=== PATIENT | male | born 1935 | race Caucasian/White ===

== ENCOUNTER → 2019-10-28 | Outpatient (CLI) | payer MEDICARE ==
[~2019-10-28] VITALS: Ht 177.8 cm; Wt 95.7 kg
[~2019-10-28] MED LIST: ACETAMINOPHEN 325 MG TAB As Ordered ONE; ACETAMINOPHEN TAB 650MG DOSE (2X325MG) PO PRN; AMLO5TAB6 PO; BETA115CR TOP; BISO5TAB9 PO; CILO100T PO; CLO; CLOP75TA2 PO; ELIQ5TAB PO; FLUT22IN INH; FURO20TA2 PO; HEPARIN 1,000 UNITS/ML 10ML VIAL (FOR RADIOLOGY& DIALYSIS ONLY) As Ordered ONE; ISOVUE-300 61% 50ML VIAL (Q9967) As Ordered ONE; LIDOCAINE 1% MDV 20ML VIAL As Ordered ONE; LISI40TA PO; METF500T13 PO; MIDAZOLAM INJ 2 MG/2 ML VIAL (J2250) As Ordered ONE; NITR0.4S14 SL; NS 1,000 ML IV SCH; PRAL1INJ SC; TRIA0.5O TOP; TRIA1CR80 TOP; VENTAER INH; ZETI10TA16 PO; fentaNYL 100 MCG/2 ML INJECTION (J3010) As Ordered ONE
[2019-10-28 09:03] LABS: HEMATOCRIT 48.3 % (42.0-52.0); HEMOGLOBIN 15.9 g/dl (13.5-17.5); MEAN CORPUSCULAR HEMOGLOBIN 32.2 pg (27.0-33.0); MEAN CORPUSCULAR HGB CONC 32.9 g/dl (32.0-36.5); MEAN CORPUSCULAR VOLUME 97.8 fl (80.0-96.0); PLATELET COUNT, AUTOMATED 123 10^3/uL (150-450); RED BLOOD COUNT 4.94 10^6/uL (4.30-6.10); WHITE BLOOD COUNT 4.6 10^3/uL (4.0-10.0)
[2019-10-28 09:32] LABS: ALBUMIN 3.4 GM/DL (3.2-5.2); ALT/SGPT 20 U/L (12-78); BILIRUBIN,TOTAL 0.6 MG/DL (0.2-1.0); BLOOD UREA NITROGEN 19 MG/DL (7-18); CALCIUM LEVEL 8.3 MG/DL (8.8-10.2); CARBON DIOXIDE LEVEL 22 MEQ/L (21-32); CHLORIDE LEVEL 113 MEQ/L (98-107); CREATININE FOR GFR 1.03 MG/DL (0.70-1.30); GLOMERULAR FILTRATION RATE > 60.0 (>35); GLUCOSE, FASTING 123 MG/DL (70-100); SODIUM LEVEL 144 MEQ/L (136-145); TOTAL PROTEIN 6.4 GM/DL (6.4-8.2)
--- NOTE | 2019-10-28 11:14 | ROOPDOC ---
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 POSTPROCEDURE DIAGNOSES: Same. PROCEDURE: 1. Ultrasound-guided access left common femoral artery 2. Aortoiliofemoral arteriogram 3. Runoff right lower extremity from selection common femoral artery 4. Selection images from right popliteal artery 5. Angioplasty right superficial femoral artery and popliteal artery with 4 x 200 [place] balloon 6. Stenting right superficial femoral artery from Christo's canal to origin with 7 x 150 Innova stent, 7 x 150 Innova stent, and 7 x 40 Innova stent and post- dilation with 6 x 200 [place] balloon 7. Completion arteriograms right lower extremity 8. Mynx closure left common femoral artery SURGEON: Roel Montejo MD ANESTHESIA: Local anesthesia 8 mL lidocaine. Monitored intravenous conscious sedation was supervised by Dr. Montejo. The patient was independent we monitor by a registered nurse assigned to the Department of radiology using automated blood pressure, EKG, and pulse oximetry. The detail sedation record is probably stored in the hospital information system. The following is the brief sedation record: Start time 09:37, stop time 10:39, Versed 1 mg IV, fentanyl 50 g IV, heparin 5000 units IV. INDICATION FOR PROCEDURE: This is a very pleasant 84-year-old gentleman with atherosclerosis and [place] vessels and claudication. He also complains of significant neurogenic pain in the hips and shooting down the lower extremities, and I cautioned him that improving blood flow with likely not improved his pain significantly. He understands. We discussed the risks benefits and alternatives to an intervention to see if we can improve flow, his right lower extremity is significantly worse than his left and will start with that limb first. Informed consent was obtained. INTERPRETATION: 1. The aortoiliofemoral vessels are heavily calcified but not significantly stenotic. Inflow is intact. 2. 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 The superficial femoral artery has bulky heavy calcified near occlusive plaque proximally, intermittent sluggish flow throughout, chronic occlusion in the mid and distal portions, and reconstitution in the popliteal artery through collaterals from the profunda. Runoff is through the anterior tibial and peroneal arteries primarily, the posterior tibial artery occluded to the mid calf. There is bulky plaque just proximal to the takeoff of the anterior tibial artery, but the tibials fill well despite this. 3. After angioplasty with a 4 x 200 [place] balloon through the SFA and popliteal artery, the popliteal arteries widely patent, but the superficial femoral artery has resistant near occlusive heavy plaque proximally, intermittent dissections throughout from heavy plaque, and flow-limiting irregular plaque distally at Christo's canal as well. After stenting and post- dilation with a 6 x 200 balloon, there is widely patent inflow from the origin of the SFA all the way to Christo's canal with intact runoff through the popliteal artery and no embolization dissection or extravasation. The profunda is intact is widely patent. 4. We were able to cross around the heavy plaque at the distal popliteal artery near the origin of the anterior tibial artery, but I did not feel I would be able to successfully navigate into the anterior tibial artery around the plaque, nor did I feel angioplasty in line with the peroneal artery would be successful, as I felt it was too risky that the heavy plaque would then occlude the anterior tibial artery completely. Therefore, today we did not perform intervention on the tibial inflow. There is a marked improvement in tibial flow from restoring flow through the SFA. REPORT OF OPERATION: The patient was brought to the angiographic suite in stable condition. His bilateral groins were prepped and draped in a sterile fashion. A timeout was performed. Sedation was administered without complication. Local anesthesia was a bow maker gift wrapping to the skin and subcutaneous tissue over the left common femoral artery and a microneedle was used to access the artery under ultrasound guidance. A wire was passed through this access under fluoroscopic guidance and the needle was removed and a micro-sheath was placed. A Glidewire was advanced through this into the central system under fluoroscopic guidance and the sheath was exchanged for 6 [place] sheath and flushed with saline. We then advanced a contractor catheter into the distal aorta and aortoiliofemoral arteriograms were performed. Please see interpretation above. We then went up and over the bifurcation with a Glidewire the contra catheter and selected the right common femoral artery and arteriograms the right lower extremity were performed. Please see interpretation above. We then spent some time navigating a wire through the near occlusions in the proximal superficial femoral artery and eventually were able to advance down to 50 occlusion at the distal superficial femoral artery. We then spent quite a bit of time trying to cross through this into the popliteal artery with a [place] catheter, and we were eventually successful. A quick contrast injection confirmed we're in the true lumen. We then exchange the sheath for a 6 x 45 destination sheath and flushed the sheath with saline. We then advanced a 4 x 200 [place] balloon to the distal SFA proximal popliteal artery and began angioplasty distally first for 3 minutes then in the midportion the SFA for 3 minutes and then the proximal SFA for 3 minutes. Arteriogram following this showed significant residual heavy plaque, flow-limiting, please see interpretation above. We then selected a 7 x 150 Innova stent and advance this across Christo's canal and deployed it. With a 1 cm overlap we then bridged a second identical stent across the mid and proximal superficial femoral artery. There was a short segment of heavy flow-limiting plaque just distal to the profunda in the very proximal SFA which was covered with a 7 x 40 Innova stent with a 1 cm overlap. We then post-dilated with a 6 x 200 balloon and there was widely patent flow through the SFA to the distal system after angioplasty and stenting. There was no dissection, embolization, or extravasation. We elected not to intervene on the tibial vessels, please see interpretation above. We then exchange the sheath for short 6 [place] sheath and deployed a Mynx closure device with good hemostasis. Pressure was held for 10 minutes and the patient was taken to recovery in stable condition. He tolerated the procedure well, with no complications with the procedure or the sedation. ESTIMATED BLOOD LOSS: Approximately 5 mL. COMPLICATIONS: None. PLAN: Okay to resume home medications and patient should restart his eliquis tonight. We will see him back in clinic in a week or 2 to check his groin access site and see how he is doing. We can revisit possibly doing an arteriogram and intervention on the left lower extremity if he desires. ROEL MONTEJO MD Oct 28, 2019 11:14
[2019-10-28 14:57] VITALS: BP 155/66
== END ==
LOC: M IRPRO 07:56
PROVIDERS: ATTEND Surgery Vascular Surgery
DX: I70.213 Atherosclerosis of native arteries of extremities with intermittent claudication, bilateral legs (principal)
CPT/HCPCS: 36415; 37226; 75710; 80053; 85027; 99152; 99153; C1725; C1769; C1876; C1887; C1894; J2250; J3010; Q9967

== ENCOUNTER → 2020-04-09 | Outpatient (CLI) | payer MEDICARE ==
[~2020-04-09] MED LIST changes: -ACETAMINOPHEN 325 MG TAB As Ordered ONE; -ACETAMINOPHEN TAB 650MG DOSE (2X325MG) PO PRN; +BISO5TAB14 PO; -BISO5TAB9 PO; -HEPARIN 1,000 UNITS/ML 10ML VIAL (FOR RADIOLOGY& DIALYSIS ONLY) As Ordered ONE; -ISOVUE-300 61% 50ML VIAL (Q9967) As Ordered ONE; -LIDOCAINE 1% MDV 20ML VIAL As Ordered ONE; -MIDAZOLAM INJ 2 MG/2 ML VIAL (J2250) As Ordered ONE; -NS 1,000 ML IV SCH; -fentaNYL 100 MCG/2 ML INJECTION (J3010) As Ordered ONE
--- NOTE | 2020-04-10 04:57 | REP ---
Clinical: Symptoms related to atherosclerotic disease and intermittent claudication. Technique: Real time hester scale and color Doppler evaluation of the bilateral lower extremity arterial vasculature using linear high frequency transducer. Findings: Right lower extremity demonstrates moderate atheromatous plaquing with biphasic wave patterns from the common femoral artery to the popliteal artery followed by monophasic wave patterns distally. The right superficial femoral arterial stent appears patent. Left lower extremity demonstrates significant atheromatous plaquing with visible areas of narrowing, diffusely monophasic arterial wave patterns and decreased flow velocities. Peak systolic velocities (cm/sec) RIGHT LEFT Common femoral artery 102.5 34.0 Profunda femoris 132.0 198.6 SFA (proximal) 84.8 22.0 SFA (mid) 56.6 19.3 SFA (distal) 40.8 12.3 Popliteal artery 31.9 15.7 MAGDALENA (prox.) 25.8 21.3 Tibioperoneal trunk 58.0 20.2 MILD DISABILITIES TEACHER (prox.) 17.7 17.9 MILD DISABILITIES TEACHER (distal) 18.5 17.4 MAGDALENA (distal) 25.7 12.1 Impression: 1. Right superficial femoral arterial stent appears patent. 2. The scattered atheromatous plaquing noted (left greater than right) with scattered areas of narrowing but no significant obvious focal stenosis or occlusion identified. Electronically Signed by Abraham Velasco MD 04/10/2020 04:49 A
== END ==
LOC: M RAD 09:13
PROVIDERS: ATTEND Physician Assistant
DX: I70.213 Atherosclerosis of native arteries of extremities with intermittent claudication, bilateral legs (principal); Z95.820 Peripheral vascular angioplasty status with implants and grafts

== ENCOUNTER → 2020-04-14 | Outpatient (CLI) | payer MEDICARE ==
[2020-04-14 08:17] VITALS: BP 200/88
[2020-04-14 08:45] LABS: HEMATOCRIT 47.1 % (42.0-52.0); HEMOGLOBIN 15.7 g/dl (13.5-17.5); MEAN CORPUSCULAR HEMOGLOBIN 32.4 pg (27.0-33.0); MEAN CORPUSCULAR HGB CONC 33.3 g/dl (32.0-36.5); MEAN CORPUSCULAR VOLUME 97.1 fl (80.0-96.0); PLATELET COUNT, AUTOMATED 169 10^3/uL (150-450); RED BLOOD COUNT 4.85 10^6/uL (4.30-6.10); WHITE BLOOD COUNT 6.7 10^3/uL (4.0-10.0)
[2020-04-14 09:23] LABS: CALCIUM LEVEL 8.5 MG/DL (8.8-10.2); CREATININE FOR GFR 1.23 MG/DL (0.70-1.30); GLOMERULAR FILTRATION RATE 59.7 (>35); POTASSIUM SERUM 4.8 MEQ/L (3.5-5.1)
== END ==
LOC: M IRPRO 08:06
PROVIDERS: ATTEND Surgery Vascular Surgery
DX: I70.213 Atherosclerosis of native arteries of extremities with intermittent claudication, bilateral legs (principal); Z53.09 Procedure and treatment not carried out because of other contraindication

== ENCOUNTER → 2020-04-20 | Outpatient (CLI) | payer MEDICARE ==
[~2020-04-20] MED LIST changes: +ATEN50TA2 PO; +ISOVUE-300 61% 50ML VIAL As Ordered ONE; +LIDOCAINE 1% MDV 20ML VIAL As Ordered ONE; +MIDAZOLAM INJ 2MG/2ML VIAL (J2250 PER 1MG) As Ordered ONE; +fentaNYL 100 MCG/2 ML INJECTION (J3010) As Ordered ONE
[2020-04-20 08:35] LABS: HEMATOCRIT 47.5 % (42.0-52.0); HEMOGLOBIN 16.1 g/dl (13.5-17.5); MEAN CORPUSCULAR HEMOGLOBIN 32.9 pg (27.0-33.0); MEAN CORPUSCULAR HGB CONC 33.9 g/dl (32.0-36.5); MEAN CORPUSCULAR VOLUME 96.9 fl (80.0-96.0); PLATELET COUNT, AUTOMATED 171 10^3/uL (150-450); WHITE BLOOD COUNT 6.8 10^3/uL (4.0-10.0)
[2020-04-20 09:45] LABS: BLOOD UREA NITROGEN 27 MG/DL (7-18); CALCIUM LEVEL 8.5 MG/DL (8.8-10.2); CARBON DIOXIDE LEVEL 26 MEQ/L (21-32); CHLORIDE LEVEL 109 MEQ/L (98-107); CREATININE FOR GFR 1.18 MG/DL (0.70-1.30); GLOMERULAR FILTRATION RATE > 60.0 (>35); GLUCOSE, FASTING 124 MG/DL (70-100); POTASSIUM SERUM 4.6 MEQ/L (3.5-5.1); SODIUM LEVEL 141 MEQ/L (136-145)
--- NOTE | 2020-04-20 11:37 | ROOPDOC ---
[facility] Report Of Operation Report of Operation DATE OF PROCEDURE: 04/20/20 PREPROCEDURE DIAGNOSES: Atherosclerosis of the [place] vessels with left lower extremity claudication POSTPROCEDURE DIAGNOSES: Same PROCEDURE: 1. Ultrasound-guided access right common femoral artery 2. Aortoiliofemoral arteriogram with oblique views of the left iliac system 3. Selection of the left common femoral and superficial femoral artery and left lower extremity runoff 4. Attempt to cross chronic total occlusion right superficial femoral artery, aborted 5. Balloon expandable stent left distal common iliac artery into external iliac artery with 9 x 57 express stent, extended with 8 x 37 express stent 6. Completion arteriograms 7. Mynx closure right common femoral artery SURGEON: Roel Montejo MD ANESTHESIA: Local anesthesia 6 mL lidocaine. Moderate intravenous conscious sedation was supervised by Dr. Monteoj. The patient was independently monitored by registered nurse assigned to the Department of radiology using automated blood pressure, EKG, and pulse oximetry. The detailed sedation record is permanently stored in the hospital information system. The following is a brief sedation record: Start time 10:04, stop time 11:05, Versed 1 mg IV, fentanyl 50 g IV, heparin 3000 units IV. CONTRAST: 57 mL Isovue-300 INDICATION FOR PROCEDURE: This is a very pleasant 84-year-old gentleman with severe bilateral peripheral vascular disease, status post crossing of right SFA chronic total occlusion and right SFA stents with significant improvement and perfusion on the right, now with much more noticeable claudication on the left. Risks benefits and alternatives to arteriogram with potential intervention were explained to the patient and he is agreeable to proceed. Informed consent was obtained. INTERPRETATION: 1. The patient has extremely calcified and ectatic iliac arteries bilaterally. They are intermittently mildly aneurysmal as well, mostly in the common iliac arteries. On the left, the patient has a 70-80% stenosis in the distal common iliac proximal external iliac artery area, and some diffuse narrowing throughout the external iliac artery. 2. The left common femoral artery is calcified the patent, and there is good flow into the profunda with multiple ratchets of the profunda providing collaterals to the SFA [id number]. The SFA is open for a few centimeters proximally, but then occludes and does not reconstitute until much more distal near Christo's canal. The popliteal artery is extremely calcified and ectatic, but patent, and there is initially 3 vessel runoff with continued good runoff through the peroneal and posterior tibial artery to the foot, but the anterior tibial artery occludes in approximately the midcalf and does not reconstitute. 3. After attempt to cross chronic total occlusion and left superficial femoral artery, no extravasation was noted, but we were unsuccessful in reentering the true lumen distal to Christo's canal. 4. After balloon expandable stents were placed in the distal common iliac artery and external iliac artery, there was widely patent flow through the iliac system with no flow-limiting stenosis, no extravasation, no dissections noted. REPORT OF OPERATION: The patient was brought to the angiographic suite in stable condition and placed supine on the fluoroscopic table. His bilateral groins were prepped and draped in a sterile fashion. A timeout was performed. Sedation was administered without complication. Local anesthesia was administered to the skin and subcutaneous tissue over the right groin. A microneedle was used to access the right femoral artery under ultrasound guidance. A wire was passed through this access under fluoroscopic guidance. The needle was removed and a 4 [place] sheath was placed and flushed with saline. This was a challenging access due to patient obesity, and heavy calcification of the common femoral artery. A guidewire and infusion catheter were advanced into the distal aorta under fluoroscopic guidance. An aortoiliofemoral arteriogram was performed with oblique views of the left iliac vessels. Please interpretation above. We then went up and over the bifurcation with a Glidewire and infusion catheter and selected the left common femoral artery and proximal SFA. Left lower extremity arteriograms and runoff were performed. Please interpretation above. We then advanced a Glidewire as far as possible in the superficial femoral artery. We exchange the sheath for a 6 [place] destination sheath over the wire. Sheath was flushed with saline. We then attempted to cross through the occlusion in the superficial femoral artery. The wire alone would not pass. We utilized a DrinkSendo catheter to try to cross the occlusion. It was heavily calcified and we were only able to get into and through the SFA in a sub-intimal plane. Unfortunately, despite crossing to the distal end of the occlusion, we could not reenter the true lumen of the vessel. After almost 30 minutes of the times, this part of the procedure was aborted. Arteriogram confirmed there was no extravasation after our attempts to cross in the sub-intimal plane. Next, we exchange the sheath for a 7 [place] destination sheath and the tip of the sheath was placed at the origin of the left common iliac artery. We selected a 9 x 57 balloon expandable stent and deployed this at the distal common iliac artery into the external iliac artery. We then extended this with an 8 x 37 balloon expandable stent and postdilated both stents with the 8 balloon. Following this, I briefly attempted to cross through the stenosis at the origin of the profunda artery to see if I might angioplasty this to provide better inflow to his collaterals, but due to the heavy calcified plaque, I wasn't able to navigate distally within the artery. This was also aborted. I discussed with the patient at this point that by improving his inflow, I might is only improved the flow to the left lower extremity by about 10%. It is possible he could have more improvement in this, but unlikely. If his symptoms are severe enough postprocedure, we may be able to consider a left femoral endarterectomy and some above-knee Pop bypass, but he is high risk for procedures because of his advanced age and cardiac history. Nevertheless, we would like to see him back in clinic to discuss options after we see how he does with ambulation after the procedure. He is agreeable to this plan. This concluded the procedure. The sheath was exchanged for a short 7 [place] sheath and flushed with saline. A Mynx closure device was deployed with good hemostasis. Pressure was held and sterile dressings were applied. The patient was taken to recovery in stable condition. He tolerated the procedure and the sedation well. ESTIMATED BLOOD LOSS: Approximately 5 mL. COMPLICATIONS: None PLAN: We will see the patient back in a week to check his groin access site. He will need to be on Plavix and minimum of 60 days following this procedure due to stent placement. He can resume his home diet medications. Depending on how the patient does after the procedure, we can possibly discuss options for a left femoral endarterectomy and left femoral to above-knee popliteal bypass for chronic SFA occlusion. Unfortunately, with the patient's significant cardiac history and advanced age, it may be difficult to get clearance for a challenging vascular surgery. It is possible that increasing his inflow with iliac stents will be enough to provide additional inflow through his profunda and c ollaterals, but I am not confident this will be the case. Depending on how the patient is doing, we will have further recommendations to follow. I have discussed this with him at length. We appreciate the opportunity to participate in the care of this patient. ROEL MONTEJO MD Apr 20, 2020 11:37
[2020-04-20 15:15] VITALS: BP 120/63
== END ==
LOC: M IRPRO 07:57
PROVIDERS: ATTEND Surgery Vascular Surgery
DX: I70.212 Atherosclerosis of native arteries of extremities with intermittent claudication, left leg (principal); I70.92 Chronic total occlusion of artery of the extremities; I11.0 Hypertensive heart disease with heart failure; I48.91 Unspecified atrial fibrillation; I50.9 Heart failure, unspecified; I25.10 Atherosclerotic heart disease of native coronary artery without angina pectoris; E11.51 Type 2 diabetes mellitus with diabetic peripheral angiopathy without gangrene; E66.01 Morbid (severe) obesity due to excess calories; E78.5 Hyperlipidemia, unspecified; K21.9 Gastro-esophageal reflux disease without esophagitis; Z79.899 Other long term (current) drug therapy; Z79.01 Long term (current) use of anticoagulants; Z79.84 Long term (current) use of oral hypoglycemic drugs; Z95.820 Peripheral vascular angioplasty status with implants and grafts
CPT/HCPCS: 37221; 75710; 80048; 85027; 99152; 99153; C1760; C1769; C1876; C1887; C1894; J1644; J2250; J3010; Q9967